=== PATIENT | female | born 1955 | race Caucasian/White ===

== ENCOUNTER 2019-04-11 05:25 | Emergency (ER) | payer OTHER ==
[~2019-04-11] VITALS: Ht 160 cm; Wt 98.9 kg
[2019-04-11 05:30] VITALS: BP 116/80
[2019-04-11] MEDS ORDERED: PHENAZOPYRIDINE 200 MG TABLET ONE ×2 (05:59→06:08)
[2019-04-11] MEDS ORDERED: PHENAZOPYRIDINE 200 MG TABLET PO ONE (06:00)
[2019-04-11 06:20] LABS: CULTURE INDICATED? YES; MICROSCOPIC INDICATED
[2019-04-11 06:20] LABS: BASOPHILS # (AUTO) 0.04 x10^3/uL (0-0.1); BASOPHILS % (AUTO) 1 % (0-1); EOSINOPHILS # (AUTO) 0.43 x10^3/uL (0-0.4); EOSINOPHILS % (AUTO) 9 % (1-7); LYMPHOCYTES # (AUTO) 1.58 x10^3/uL (1-3.4); LYMPHOCYTES % (AUTO) 32 % (22-44); MD NO; MEAN CORPUSCULAR HEMOGLOBIN 32.6 pg (27.0-34.8); MEAN CORPUSCULAR HGB CONC 33.4 g/dL (32.4-35.8); MEAN CORPUSCULAR VOLUME 97.9 fL (80-100); MEAN PLATELET VOLUME 8.9 fL (7.4-10.4); MONOCYTES # (AUTO) 0.47 x10^3/uL (0.2-0.8); MONOCYTES % (AUTO) 10 % (2-9); NEUTROPHILS # (AUTO) 2.38 x10^3/uL (1.8-6.8); NEUTROPHILS % (AUTO) 49 % (42-75); PLATELET COUNT 240 x10^3/uL (130-400); RED BLOOD COUNT 4.09 x10^6/uL (3.82-5.3)
[2019-04-11 06:31] LABS: ALBUMIN 3.7 g/dL (3.4-5.0); ANION GAP 4 mmol/L (5-15); CALCIUM 8.6 mg/dL (8.5-10.1); CHLORIDE 108 mmol/L (98-107); CREATININE 1.05 mg/dL (0.55-1.02)
--- NOTE | 2019-04-11 06:52 | NUR ---
RECEIVED REPORT FROM [facility], PLAN OF CARE DISCUSSED
--- NOTE | 2019-04-11 07:10 | NUR ---
PT RESTING, VERBALIZED NO NEEDS AT THIS TIME. EXPLAINED AWAITING FINAL TEST. PT VERBALIZED UNDERSTANDING
[2019-04-11] MEDS ORDERED: CEFTRIAXONE 1,000 MG ONE (07:19)
[2019-04-11] MEDS ORDERED: CEFTRIAXONE 1,000 MG IM ONE (07:30)
--- NOTE | 2019-04-11 07:41 | NUR ---
PT C.O OF PAIN AT INJECTION SITE, EXPLAINED TO RUB AND PLACE ICE ON SITE IF CONTINUES TO BURN. PT VERALIZED UNDERSTANDING Patient given discharge instructions and they have confirmed that they understand the instructions. Patient ambulatory with steady gait.
== END 2019-04-11 07:51 | disposition home or self-care (01) ==
LOC: ED 07:46
DX: N30.00 Acute cystitis without hematuria (principal); E03.9 Hypothyroidism, unspecified
CPT/HCPCS: 36415; 80048; 81001; 82040; 85025; 87077; 87086; 96372; 99283; J0696; 87186

== ENCOUNTER → 2021-03-04 | Outpatient (CLI) | payer OTHER | END | disposition home or self-care (01) | LOC: RAD 08:31 | PROVIDERS: ATTEND Family Medicine | DX: K82.4 Cholesterolosis of gallbladder (principal) | CPT/HCPCS: 76705 ==